=== PATIENT | female | born 1980 | race Caucasian/White ===

== ENCOUNTER 2018-04-28 16:16 | Inpatient (IN) | payer OTHER ==
[~2018-04-28] VITALS: Ht 161.9 cm; Wt 76.2 kg
[~2018-04-28 16:16] MED LIST: PREN1TAB52 PO; PREN1TAB80 PO
[2018-06-26] MEDS ORDERED: RINGERS SOLUTION,LACTATED 1,000 ML IV ONE (08:42)
[2018-06-26] MEDS ORDERED: CITRIC ACID/SODIUM CITRATE 30 ML SOLUTION UDCUP PO ONE (08:45)
[2018-06-26] MEDS ORDERED: METOCLOPRAMIDE HCL 5 MG/ML 2 ML VIAL IVP ONE (08:45)
[2018-06-26 09:32] LABS: BASOPHILS % (AUTO) 0.6 % (0.0-2.0); EOSINOPHILS % (AUTO) 2.6 % (1.0-6.0); HEMATOCRIT 33.9 % (36-46); HEMOGLOBIN 11.8 g/dL (12.0-16.0); LYMPHOCYTES # (AUTO) 2.1 K/uL (1.0-4.8); LYMPHOCYTES % (AUTO) 21.7 % (22.0-44.0); MEAN CORPUSCULAR HEMOGLOBIN 33.4 pg (26.0-34.0); MEAN CORPUSCULAR HGB CONC 34.8 G/dL (31.0-37.0); MEAN CORPUSCULAR VOLUME 96 fL (80-100); MONOCYTES # (AUTO) 0.7 K/uL (0.1-1.0); MONOCYTES % (AUTO) 7.4 % (2.0-9.0); NEUTROPHILS # (AUTO) 6.7 K/uL (1.8-7.7); NEUTROPHILS % (AUTO) 67.7 % (40.0-70.0); PLATELET COUNT (AUTO) 153 K/uL (150-450); RED BLOOD CELL COUNT(AUTO) 3.53 MIL/uL (4.00-5.20); RED CELL DISTRIBUTION WIDTH 13.1 % (11.5-14.5)
[2018-06-26 09:38] VITALS: BP 112/66
[2018-06-26] MEDS ORDERED: PREN1TAB80 PO (09:40)
[2018-06-26] MEDS ORDERED: ACETAMINOPHEN 1000 MG/ISO-OSM 100 ML IV ONE (10:34)
[2018-06-26] MEDS ORDERED: METHYLERGONOVINE MALEATE 0.2 MG TABLET PO PRN (11:45)
[2018-06-26] MEDS ORDERED: LANOLIN 7 GM OINTMENT TP PRN (11:45)
[2018-06-26] MEDS ORDERED: OxyCODONE HCL/ACETAMINOPHEN 5-325 MG TABLET PO PRN ×2 (11:45)
[2018-06-26] MEDS ORDERED: MORPHINE SULFATE/PF 0.5 MG/ML 10 ML AMP IVP ONE (12:00)
[2018-06-26] MEDS ORDERED: EPHEDrine SULFATE 50 MG/ML VIAL IM ONE (12:00)
[2018-06-26] MEDS ORDERED: FentaNYL CITRATE-PF 100 MCG/2 ML VIAL IVP ONE (12:00)
[2018-06-26] MEDS ORDERED: HYDROmorphone 2 MG/ML SYRINGE IVP PRN (12:00)
[2018-06-26] MEDS ORDERED: OXYTOCIN 10 UNITS/ML VIAL IM ONE (12:00)
[2018-06-26] MEDS ORDERED: ONDANSETRON HCL 4 MG/2 ML VIAL IVP ONE (12:00)
[2018-06-26] MEDS ORDERED: FentaNYL CITRATE-PF 100 MCG/2 ML VIAL IVP PRN ×2 (12:00)
[2018-06-26] MEDS ORDERED: OxyCODONE HCL/ACETAMINOPHEN 10-325 MG TABLET PO PRN (12:00)
[2018-06-26] MEDS ORDERED: NALOXONE HCL 0.4 MG/ML VIAL IVP PRN (12:00)
[2018-06-26] MEDS ORDERED: ONDANSETRON HCL 4 MG/2 ML VIAL IVP PRN (12:00)
[2018-06-26] MEDS ORDERED: MEPERIDINE HCL/PF 25 MG/0.5 ML AMP IVP PRN (12:00)
[2018-06-26] MEDS ORDERED: KETOROLAC TROMETHAMINE 60 MG/2 ML VIAL IM ONE (12:00)
[2018-06-26] MEDS ORDERED: DiphenhydrAMINE HCL 50 MG/ML VIAL IVP PRN (12:00)
[2018-06-26] MEDS: DEXTROSE 5%-LACTATED RINGERS 1,000 ML IV SCH ×2 (13:13→22:23)
[2018-06-26] MEDS: CeFAZolin 2 GM/DEXTROSE 50 ML IV SCH (17:34)
[2018-06-26] MEDS: ACETAMINOPHEN 1000 MG/ISO-OSM 100 ML IV SCH ×2 (17:34→23:40)
[2018-06-26] MEDS: KETOROLAC TROMETHAMINE 30 MG/ML VIAL IVP SCH (17:35)
[2018-06-27] MEDS: KETOROLAC TROMETHAMINE 30 MG/ML VIAL IVP SCH ×2 (00:06→06:04)
[2018-06-27] MEDS: CeFAZolin 2 GM/DEXTROSE 50 ML IV SCH (02:25)
[2018-06-27] MEDS: ACETAMINOPHEN 1000 MG/ISO-OSM 100 ML IV SCH (05:37)
[2018-06-27 06:10] LABS: BASOPHILS % (AUTO) 0.2 % (0.0-2.0); EOSINOPHILS % (AUTO) 0.6 % (1.0-6.0); HEMATOCRIT 29.1 % (36-46); HEMOGLOBIN 10.2 g/dL (12.0-16.0); LYMPHOCYTES # (AUTO) 1.3 K/uL (1.0-4.8); LYMPHOCYTES % (AUTO) 10.4 % (22.0-44.0); MEAN CORPUSCULAR HEMOGLOBIN 33.5 pg (26.0-34.0); MEAN CORPUSCULAR HGB CONC 35.1 G/dL (31.0-37.0); MEAN CORPUSCULAR VOLUME 96 fL (80-100); MONOCYTES # (AUTO) 0.8 K/uL (0.1-1.0); MONOCYTES % (AUTO) 6.3 % (2.0-9.0); NEUTROPHILS # (AUTO) 10.3 K/uL (1.8-7.7); NEUTROPHILS % (AUTO) 82.5 % (40.0-70.0); PLATELET COUNT (AUTO)-OB 132 K/uL (150-450); RED BLOOD CELL COUNT(AUTO) 3.05 MIL/uL (4.00-5.20); RED CELL DISTRIBUTION WIDTH 13.1 % (11.5-14.5)
[2018-06-27] MEDS: MAGNESIUM HYDROXIDE SUSPENSION 30 ML UDCUP PO PRN ×2 (08:58→20:42)
[2018-06-27] MEDS: IBUPROFEN 800 MG TABLET PO PRN ×2 (13:09→20:43)
[2018-06-27] MEDS: SENNA/DOCUSATE SODIUM 187-50 MG TABLET PO PRN (20:43)
[2018-06-28] MEDS: IBUPROFEN 800 MG TABLET PO PRN ×2 (03:58→12:38)
[2018-06-28] MEDS: MAGNESIUM HYDROXIDE SUSPENSION 30 ML UDCUP PO PRN (09:40)
[2018-06-28] MEDS: SENNA/DOCUSATE SODIUM 187-50 MG TABLET PO PRN (09:40)
[2018-06-28] MEDS ORDERED: HYDR-309 (11:11)
[2018-06-28] MEDS ORDERED: FERR-89 PO (11:22)
[2018-06-28] MEDS ORDERED: IBUP-2071 PO (11:22)
[2018-06-28] MEDS ORDERED: DSS100 PO (11:23)
== END 2018-06-28 15:25 | disposition home or self-care (01) | DRG 766 ==
LOC: OBSVTOIN 06-26 08:26 → 4S 06-26 08:26
PROVIDERS: ADMIT Specialist; ATTEND Specialist
PROC: 10D00Z1 Extraction of Products of Conception, Low, Open Approach (ICD-10-PCS; principal; 2018-06-26)
PROC: 0UB70ZZ Excision of Bilateral Fallopian Tubes, Open Approach (ICD-10-PCS; 2018-06-26)
DX: O32.2XX0 Maternal care for transverse and oblique lie, not applicable or unspecified (principal); O34.211 Maternal care for low transverse scar from previous cesarean delivery; Z3A.39 39 weeks gestation of pregnancy; Z37.0 Single live birth; Z30.2 Encounter for sterilization
CPT/HCPCS: 86850; 86900; 86901; 87081; 88302; J0131; J0690; J1885; J2274; J2405; J2590; J2765; J3010; J3490; J7120